=== PATIENT | female | born 1985 | race Caucasian/White ===

== ENCOUNTER 2022-01-26 21:36 | Emergency (ER) | payer SELFPAY ==
[~2022-01-26] VITALS: Ht 167.6 cm; Wt 74.8 kg
[2022-01-26] MEDS ORDERED: PREDNISONE20 MG PO (23:03)
[2022-01-26] MEDS ORDERED: VENTOLIN HFA18 GM INH (23:03)
[2022-01-26] MEDS ORDERED: AZITHROMYCIN250 MG PO (23:03)
== END 2022-01-26 23:15 | disposition home or self-care (01) ==
LOC: ER 21:45
DX: R05.9 Cough, unspecified (principal); U07.1 COVID-19; F17.210 Nicotine dependence, cigarettes, uncomplicated
CPT/HCPCS: 99282; U0002